=== PATIENT | female | born 1960 | race Caucasian/White ===

== ENCOUNTER 2022-05-28 17:57 | Emergency (ER) | payer BC, SELFPAY ==
[2022-05-28 17:59] VITALS: BP 140/76; PULSE 63; RESP 18; TEMP 36.4; O2SAT 99; BMI 38.6
--- NOTE | 2022-05-28 18:41 | EDS_ITS ---
HPI History of Present Illness HPI Narrative: Eating andPatient presents with right elbow injury that occurred today. Patient states she is over a Vine and a pumpkin patch. Patient states she fell and felt a crack in her left elbow. Patient denies any head injury or loss of consciousness. Patient denies any paresthesias or weakness. Patient states her pain is worse with movement. Patient states it is better with rest. Patient denies any other injuries. Patient describes her pain as sharp and aching. Chief Complaint: Upper Extremity Injury Informant: patient Occured/Mechanism Mechanism/Context: Yes fall and Yes same level fall Onset/Context/Timing Onset: Today Context: Sudden Onset Timing: Continuous Quality of Pain: Sharp and Aching Location: Left elbow Worsened by: Movement Relieved by: Rest Associated Symptoms Associated Symptoms: Negative for Parasthesia, Weakness or Loss of Funtion [facility] Medical History Hypertension Allergy/AdvReac Type Severity Reaction Status Date / Time No Known Allergies Allergy Verified 05/28/22 17:58 Surgical History no surgical history no surgical history Social History Smoking Status: Never smoker ROS ROS ED Constitutional Constitutional ED: Denies chills or fever(s) Eyes Eyes: Denies blurry vision or change in vision ENT ENT ED: Denies rhinorrhea or sore throat Cardiovascular Cardiovascular: Denies chest pain or palpitations Respiratory/Chest Respiratory/Chest: Denies cough or dyspnea Gastrointestinal Gastrointestinal: Denies nausea or vomiting Genitourinary Genitourinary ED: Denies dysuria or hematuria Musculoskeletal Musculoskeletal: Denies back pain or neck pain Integumentary Denies abscess or rash Neurologic Neurologic: Denies headache(s) or weakness Allergic/Immunologic Allergic/Immunologic ED: Denies mouth swelling or urticaria EXAM Physical Exam Const Vital Signs: 05/28/22 17:59 Temperature 97.6 F L Temperature Source Temporal Pulse Rate 63 Respiratory Rate 18 Blood Pressure 140/76 H Blood Pressure Mean 97 Pulse Ox 99 Oxygen Delivery Method Room Air Positive well nourished and well developed General Appearance ED: well developed and NAD HEENT Reports moist mucous membranes Neck full ROM Extremity Extremity Narrative: There is tenderness over the right elbow. There is no obvious deformity noted. Range of motion was limited in all motions of the right elbow secondary to pain. Radial pulses are equal bilaterally. Sensation was intact to light touch in the radial, median, and ulnar areas. Strength is 5/5 in the radial, median, and ulnar areas. Neuro oriented x3, CN's II-XII intact bilaterally, moves all extremities, no focal motor deficits and no sensory deficits noted Sensorium / Orientation: alert Motor Exam: strength 5/5 throughout Psych mental status grossly normal MDM MDM MDM Narrative Medical decision making narrative: Patient was given a dose of [employer] here. X-rays of the right elbow were obtained. There are 3 views. On my interpretation, there is no acute fracture. There is no soft tissue swelling. There is no effusion or fat pad displ acement. Radiologist also interpreted the x-rays and agrees. Patient was advised of her findings. Patient was instructed to ice and elevate the right elbow. Patient was given a sling for comfort. Patient was instructed to do range of motion exercises. Patient was instructed to take Tylenol or ibuprofen as needed for pain. Patient understands and is agreeable with the plan. All questions were answered. Discharge Plan Triage Chief Complaint: Upper Extremity Injury ED Provider: Ashish Beck Dx/Rx/DC Orders Clinical Impression: Sprain of elbow, right, Fall Instructions: ED Sprain, Elbow Primary Care Provider: Mario Romano Referrals: Mario Romano MD [Primary Care Provider] - 5-7 Days Disposition Disposition: Home, Self Care
--- NOTE | 2022-05-28 18:50 | RAD_ITS ---
EXAM: XR RIGHT ELBOW COMPLETE, 3 OR MORE VIEWS CLINICAL INDICATION: Injury/Pain TECHNIQUE: Frontal, lateral and oblique views of the right elbow. This report was created using [employer] report generation technology. COMPARISON: None. FINDINGS: BONES/JOINTS: Unremarkable. There is no displacement of the anterior or posterior fat pads. No acute fracture. No subluxation. Normal alignment. Preservation of the joint space. No destructive or sclerotic lesions. SOFT TISSUES: Unremarkable. No soft tissue swelling or gas. No radiopaque foreign body. IMPRESSION: Negative right elbow. EXAM: XR RIGHT ELBOW COMPLETE, 3 OR MORE VIEWS CLINICAL INDICATION: Injury/Pain TECHNIQUE: Frontal, lateral and oblique views of the right elbow. This report was created using [employer] report generation technology. COMPARISON: None. FINDINGS: BONES/JOINTS: Unremarkable. There is no displacement of the anterior or posterior fat pads. No acute fracture. No subluxation. Normal alignment. Preservation of the joint space. No destructive or sclerotic lesions. SOFT TISSUES: Unremarkable. No soft tissue swelling or gas. No radiopaque foreign body. RAD/Elbow min 3 Views IMPRESSION: Negative right elbow. Electronically Signed: Jong Chauhan MD at 19:28 EDT ,
[2022-05-28 20:22] VITALS: RESP 18
== END 2022-05-28 20:34 | disposition home or self-care (01) ==
PROVIDERS: Emergency Provider Emergency Medicine; PCP Family Medicine; Visit Provider Emergency Medicine
DX: S53.401A Unspecified sprain of right elbow, initial encounter (principal); W18.30XA Fall on same level, unspecified, initial encounter
CPT/HCPCS: 73080; 99283; J7030; A4216